=== PATIENT | female | born 2000 ===

== ENCOUNTER 2021-07-03 13:37 | Emergency (ER) | payer SELFPAY ==
[2021-07-03] MEDS ORDERED: ONDANSETRON 4 MG ODT TAB PO ONE (14:24)
[2021-07-03 15:00] LABS: Hematocrit 41.5 % (30.3-42.9); Hemoglobin 14.2 gm/dl (10.1-14.3); Mean Corpuscular HGB Conc 34 % (30-34); Mean Corpuscular Volume 91 fl (79-97); Platelet Count 368 K/mm3 (140-440); Red Blood Count 4.57 M/mm3 (3.65-5.03); Red Cell Distribution Width 13.3 % (13.2-15.2)
[2021-07-03 15:23] LABS: Alanine Aminotransferase 11 units/L (7-56); Albumin 4.8 g/dL (3.9-5); Blood Urea Nitrogen 18 mg/dL (7-17); Calcium 10.6 mg/dL (8.4-10.2); Hemolysis Index 4
[2021-07-03 15:24] LABS: BUN/Creatinine Ratio 26
[2021-07-03] MEDS ORDERED: METOCLOPRAMIDE 10 MG/2 ML INJ IV ONE (15:33)
--- NOTE | 2021-07-03 15:41 | Emergency Department Report ---
ED N/V/D HPI - General Chief complaint: Nausea/Vomiting/Diarrhea Stated complaint: VOMITING X3 Time Seen by Provider: 07/03/21 14:42 Source: patient Mode of arrival: Ambulatory Limitations: No Limitations - History of Present Illness Initial comments: 20-year-old female with no significant past medical history. Was brought to the ER today by mom with complaints of nausea and vomiting. Patient states that her symptoms started 2 days ago. Patient states that she has had multiple episodes of nausea and vomiting for the past 2 days. She states that emesis has been mainly bilious, without any coffee-ground emesis or hematemesis. Patient states that she has not been able to keep anything down. She reports associated epigastric pain and states that she has not had a bowel movement since her symptoms started. Patient states that she went to the ER in [place] yesterday, but they only gave her ODT Zofran and sent to home. They did give a prescription for Zofran, but she states that the only pharmacy that was open at the time was a 24-hour [facility] pharmacy. She states that the [facility] did not take her insurance but the pharmacy give a courtesy 3 tablets of the Zofran. Patient states that she took one last night and then 1 again today. She reports only mild improvement after taking the Zofran yesterday and today. Patient states that she feels like her symptoms are worse today. She states that she thinks it could be something that she ate though at the time she ate it did not taste or smell bad. She states that no one else at home is sick. She denies any ill contacts or recent travel. She denies any alcohol abuse, or illicit drug use. She denies any history of abdominal surgeries. Her last menstrual cycle ended about May 31. complaint: nausea, vomiting, abdominal pain -: days(s) (2) - Related Data Previous Rx's Medication Instructions Recorded Last Taken Type Famotidine [Pepcid] 20 mg PO BID #30 tablet 07/03/21 Unknown Rx Metoclopramide [Reglan] 10 mg PO Q8HR PRN #25 tab 07/03/21 Unknown Rx Allergies Allergy/AdvReac Type Severity Reaction Status Date / Time No Known Allergies Allergy Unverified 07/03/21 13:47 ED Review of Systems ROS: Stated complaint: VOMITING X3 Other details as noted in HPI Comment: All other systems reviewed and negative Constitutional: denies: chills, fever Eyes: denies: eye pain, eye discharge, vision change ENT: denies: ear pain, throat pain, dental pain, hearing loss, epistaxis, congestion Respiratory: denies: cough, shortness of breath, wheezing Cardiovascular: denies: chest pain, palpitations Gastrointestinal: abdominal pain, nausea, vomiting. denies: diarrhea, constipation, hematemesis, melena, hematochezia Genitourinary: denies: urgency, dysuria, frequency, hematuria, discharge, abnormal menses, dyspareunia Musculoskeletal: denies: back pain, joint swelling, arthralgia Psychiatric: denies: anxiety, depression, auditory hallucinations, visual hallucinations, homicidal thoughts, suicidal thoughts Hematological/Lymphatic: denies: easy bleeding, easy bruising, swollen glands ED Past Medical Hx - Past Medical History Previous Medical History?: No - Surgical History Past Surgical History?: No - Medications Home Medications: Home Medications Medication Instructions Recorded Confirmed Last Taken Type Famotidine [Pepcid] 20 mg PO BID #30 tablet 07/03/21 Unknown Rx Metoclopramide [Reglan] 10 mg PO Q8HR PRN #25 tab 07/03/21 Unknown Rx ED Physical Exam - General Limitations: No Limitations General appearance: alert, in no apparent distress - Head Head exam: Present: atraumatic, normocephalic - Eye Eye exam: Present: normal appearance, PERRL, EOMI Pupils: Present: normal accommodation - ENT ENT exam: Present: mucous membranes dry - Neck Neck exam: Present: normal inspection, full ROM - Respiratory Respiratory exam: Present: normal lung sounds bilaterally. Absent: respiratory distress, wheezes, rales, rhonchi - Cardiovascular Cardiovascular Exam: Present: regular rate, normal rhythm, normal heart sounds - GI/Abdominal GI/Abdominal exam: Present: soft, tenderness (Mod epigastric with mild guarding but no rebound or rigidity ). Absent: distended, rebound, rigid - Neurological Exam Neurological exam: Present: alert, oriented X3, CN II-XII intact, normal gait - Psychiatric Psychiatric exam: Present: normal affect, normal mood - Skin Skin exam: Present: intact ED Course Vital Signs 07/03/21 07/03/21 13:49 19:49 Temperature 98.7 F 99.2 F Pulse Rate 101 H 70 Respiratory 18 16 Rate Blood Pressure 139/97 Blood Pressure 127/58 [Left] O2 Sat by Pulse 99 100 Oximetry ED Medical Decision Making - Lab Data Result diagrams: 07/03/21 14:42 07/03/21 14:42 - Radiology Data Radiology results: report reviewed Patient: SANA HAJI MR#: [id number] : 2000 Acct:[id number] Age/Sex: 20 / F ADM Date: 07/03/21 Loc: ED Attending Dr: Ordering Physician: LILIA URBINA Date of Service: 07/03/21 Procedure(s): US abdomen limited Accession Number(s): [id number] cc: LILIA URBINA ULTRASOUND ABDOMEN, LIMITED INDICATION / CLINICAL INFORMATION: epigastric pain/nausea and vomiting. COMPARISON: None available. FINDINGS: PANCREAS: Visualized portion shows no significant abnormality. LIVER: No significant abnormality. GALLBLADDER: No significant abnormality. BILE DUCTS: No significant abnormality. Common bile duct measures 2 mm. FREE FLUID: None. ADDITIONAL FINDINGS: None. IMPRESSION: 1. No significant sonographic abnormality of the right upper quadrant. Signer Name: Kathi Lu MD Signed: 07/03/2021 7:56 PM Workstation Name: [id number] Transcribed By: DB Dictated By: KATHI LU MD Electronically Authenticated By: KATHI LU MD Signed Date/Time: 07/03/211955 DD/ 54 TD/TT: - Medical Decision Making 2023: Patient feeling better after meds and fluids. She was observed tolerating PO fluids. She has had no vomiting during stay. She is currently not in any acute distress. She is not toxic or ill appearing. Repeat Abd exam shows soft non tender abdomen. All labs reviewed -- CBC /CMP unremarkable. Lipase also unremarkable. HCG negative. UA show UTI. GB US shows nothing acute. Discussed all labs and US results with patient. Her symptoms could be viral at this time. her history, exam, diagnostic testing and current condition do not suggest acute appendicitis, bowel obstruction, acute cholecystitis, bowel perforation, pancreatitis, sepsis or other significant pathology to warrant further testing, continued ED treatment, admission or surgical evaluation at this point. Discussed suspected diagnosis and treatment plan with patient. Patient expressed onset of all instructions and agree with plan. Patient was stable at time of discharge Critical care attestation.: If time is entered above; I have spent that time in minutes in the direct care of this critically ill patient, excluding procedure time. ED Disposition Clinical Impression: Epigastric pain, Nausea and vomiting Disposition: HOME / SELF CARE / HOMELESS Is pt being admited?: No Does the pt Need Aspirin: No Condition: Stable Instructions: Gastritis, Adult, [id number], Abdominal Pain, Adult, Nausea and Vomiting, Adult, [id number], [place] Diet Additional Instructions: You can continue the zofran or take the reglan as prescribed to help with nausea and vomiting. Take the pepcid as prescribed. I recommend doing a bland diet for the next day. I recommend that you drink lots of fluids. Follow up with PCP this week or next week. Return to ED if worse. Prescriptions: Famotidine [Pepcid] 20 mg PO BID #30 tablet Metoclopramide [Reglan] 10 mg PO Q8HR PRN #25 tab PRN Reason: nausea/vomiting Referrals: PRIMARY CARE, [Primary Care Provider] - 3-5 Days [facility] [Provider Group] - 3-5 Days Forms: Work/School Release Form(ED) Time of Disposition: 20:21
[2021-07-03] MEDS ORDERED: FAMOTIDINE 20 MG TAB PO ONE (15:48)
[2021-07-03 16:01] LABS: Amphetamine Screen,Urine Negative; Benzodiazepines Screen,Urine Negative; Cocaine Screen,Urine Negative; Methadone Screen,Urine Negative; Opiate Screen,Urine Negative
[2021-07-03 16:13] LABS: Cannabinoid Screen,Urine Positive
[2021-07-03 16:16] LABS: Bilirubin,Urine NEG (Negative); Blood,Urine MOD (Negative); Color,Urine Yellow (Yellow); Mucus,Urine 2+ /HPF
[2021-07-03] MEDS ORDERED: SODIUM CHLORIDE 0.9% 1000 ML 1,000 ML ONE (16:23)
[2021-07-03] MEDS ORDERED: MORPHINE 2 MG/1 ML INJ IV ONE (18:55)
[2021-07-03 19:50] VITALS: BP 127/58
--- NOTE | 2021-07-03 20:00 | Ultrasound Report ---
ULTRASOUND ABDOMEN, LIMITED INDICATION / CLINICAL INFORMATION: epigastric pain/nausea and vomiting. COMPARISON: None available. FINDINGS: PANCREAS: Visualized portion shows no significant abnormality. LIVER: No significant abnormality. GALLBLADDER: No significant abnormality. BILE DUCTS: No significant abnormality. Common bile duct measures 2 mm. FREE FLUID: None. ADDITIONAL FINDINGS: None. IMPRESSION: 1. No significant sonographic abnormality of the right upper quadrant. Signer Name: Sher Lu MD Signed: 07/03/2021 7:56 PM Workstation Name: [id number]
== END 2021-07-03 20:35 | disposition home or self-care (01) ==
LOC: ED 13:37
DX: R11.2 Nausea with vomiting, unspecified (principal); R10.13 Epigastric pain; Z79.899 Other long term (current) drug therapy
CPT/HCPCS: 36415; 76705; 80053; 80307; 81001; 83690; 83735; 84702; 85027; 87086; 96374; 96375; 99284; J2270; J2765; J7030; Q0162

== ENCOUNTER 2021-07-25 23:47 | Emergency (ER) | payer OTHER ==
[2021-07-26 00:59] VITALS: BP 125/104
[2021-07-26] MEDS ORDERED: diphenhydrAMINE 50 MG/ML VIAL IV ONE (01:12)
[2021-07-26] MEDS ORDERED: SODIUM CHLORIDE 0.9% 1000 ML 1,000 ML IV ONE (01:12)
[2021-07-26] MEDS ORDERED: METOCLOPRAMIDE 10 MG/2 ML INJ IV ONE (01:12)
[2021-07-26] MEDS ORDERED: FAMOTIDINE 20 MG/2 ML INJ IV ONE (01:18)
--- NOTE | 2021-07-26 01:18 | Emergency Department Report ---
ED N/V/D HPI - General Chief complaint: Abdominal Pain Stated complaint: VOMITING,ABD PAIN Source: patient Mode of arrival: Ambulatory Limitations: No Limitations - History of Present Illness Initial comments: Patient is a nulliparous 20-year-old -Indian female with history of chronic cannabis abuse who presents to the ED with acute onset persistent intermittent nausea and vomiting with epigastric pain for the last 3 weeks, worse in the last 5 days. Patient states that she was initially treated in this ED 3 weeks ago for the same and discharged home on antiemetics but that these medications have not helped control her nausea and vomiting episodes. Patient however admits to continued cannabis abuse despite having the symptoms. Patient states that the last time she smoked cannabis was about 3 days ago and that her symptoms got worse after smoking this cannabis. Patient states that in the last 12 hours she has not been able to keep anything down because of intractable nausea and vomiting. Patient denies fever, chills, dizziness, syncope, headache, chest pain or shortness of breath, cough, hematemesis, hematochezia, diarrhea, dysuria, urinary frequency and urgency or low back pain and vaginal bleeding. MD complaint: nausea, vomiting, abdominal pain (Epigastric) -: Sudden, week(s) (3) Description of Vomiting: food contents, watery, bilious Associated Abdominal Pain: Yes (Mild epigastric) Location: epigastric Radiation: none Severity: severe Pain Scale: 7 Quality: cramping, aching Consistency: intermittent Improves with: none Worsens with: eating, vomiting Context: other (Chronic cannabis abuse) Associated Symptoms: denies other symptoms, loss of appetite, malaise, nausea/vomiting. denies: myalgias, chest pain, cough, diaphoresis, fever/chills, headaches, rash, dysuria, shortness of breath, syncope, weakness - Related Data Previous Rx's Medication Instructions Recorded Last Taken Type Famotidine [Pepcid] 20 mg PO BID #30 tablet 07/03/21 Unknown Rx Metoclopramide [Reglan] 10 mg PO Q8HR PRN #25 tab 07/03/21 Unknown Rx Dicyclomine [Bentyl] 20 mg PO Q6H PRN #30 tablet 07/26/21 Unknown Rx Famotidine [Pepcid] 20 mg PO BID #60 tablet 07/26/21 Unknown Rx Promethazine [Phenergan] 25 mg PO Q6HR PRN #20 tab 07/26/21 Unknown Rx Promethazine [Phenergan] 25 mg NV Q6HR PRN #30 supp.rect 07/26/21 Unknown Rx Allergies Allergy/AdvReac Type Severity Reaction Status Date / Time peanut Allergy Hives Verified 07/26/21 00:58 raspberry Allergy Hives Verified 07/26/21 00:58 ED Review of Systems ROS: Stated complaint: VOMITING,ABD PAIN Other details as noted in HPI Constitutional: denies: chills, fever Eyes: denies: eye pain, eye discharge, vision change ENT: denies: ear pain, throat pain Respiratory: denies: cough, shortness of breath, wheezing Cardiovascular: denies: chest pain, palpitations Endocrine: no symptoms reported Gastrointestinal: abdominal pain (Mild epigastric pain), nausea, vomiting. denies: diarrhea Genitourinary: denies: urgency, dysuria, discharge Musculoskeletal: denies: back pain, joint swelling, arthralgia Skin: denies: rash, lesions Neurological: denies: headache, weakness, paresthesias Psychiatric: denies: anxiety, depression Hematological/Lymphatic: denies: easy bleeding, easy bruising ED Past Medical Hx - Past Medical History Previous Medical History?: No Additional medical history: Cannabis abuse - Medications Home Medications: Home Medications Medication Instructions Recorded Confirmed Last Taken Type Famotidine [Pepcid] 20 mg PO BID #30 tablet 07/03/21 Unknown Rx Metoclopramide [Reglan] 10 mg PO Q8HR PRN #25 tab 07/03/21 Unknown Rx Dicyclomine [Bentyl] 20 mg PO Q6H PRN #30 tablet 07/26/21 Unknown Rx Famotidine [Pepcid] 20 mg PO BID #60 tablet 07/26/21 Unknown Rx Promethazine [Phenergan] 25 mg PO Q6HR PRN #20 tab 07/26/21 Unknown Rx Promethazine [Phenergan] 25 mg NV Q6HR PRN #30 supp.rect 07/26/21 Unknown Rx ED Physical Exam - General Limitations: No Limitations General appearance: alert, in no apparent distress - Head Head exam: Present: atraumatic, normocephalic, normal inspection - Eye Eye exam: Present: normal appearance, PERRL, EOMI Pupils: Present: normal accommodation - ENT ENT exam: Present: normal exam, normal orophraynx, mucous membranes moist, TM's normal bilaterally, normal external ear exam - Neck Neck exam: Present: normal inspection, full ROM - Respiratory Respiratory exam: Present: normal lung sounds bilaterally. Absent: respiratory distress, wheezes, rales, rhonchi, stridor, chest wall tenderness, accessory muscle use, decreased breath sounds, prolonged expiratory - Cardiovascular Cardiovascular Exam: Present: regular rate, normal rhythm, normal heart sounds. Absent: systolic murmur, diastolic murmur, rubs, gallop - GI/Abdominal GI/Abdominal exam: Present: soft, tenderness (Palpable mild epigastric tenderness), normal bowel sounds. Absent: guarding, rebound, hyperactive bowel sounds, hypoactive bowel sounds, organomegaly - Bi-manual exam: Present: other (Pelvic exam deferred at this time) - Extremities Exam Extremities exam: Present: normal inspection, full ROM, normal capillary refill - Back Exam Back exam: Present: normal inspection, full ROM. Absent: tenderness, CVA tenderness (R), CVA tenderness (L), muscle spasm, paraspinal tenderness, vertebral tenderness - Neurological Exam Neurological exam: Present: alert, oriented X3, CN II-XII intact, normal gait, reflexes normal - Psychiatric Psychiatric exam: Present: normal affect, normal mood - Skin Skin exam: Present: warm, dry, intact, normal color. Absent: rash ED Course Vital Signs 07/26/21 07/26/21 00:58 05:00 Temperature 98.3 F Pulse Rate 97 H 73 Respiratory 19 16 Rate Blood Pressure 125/104 [Left] O2 Sat by Pulse 100 97 Oximetry ED Medical Decision Making - Lab Data Result diagrams: 07/26/21 01:23 07/26/21 01:23 - Medical Decision Making This is a nulliparous 20-year-old -Indian female with history of chronic cannabis abuse who presents to the ED with acute onset persistent intermittent nausea and vomiting with epigastric pain for the last 3 weeks, worse in the last 5 days. Patient states that she was initially treated in this ED 3 weeks ago for the same and discharged home on antiemetics but that these medications have not helped control her nausea and vomiting episodes. Patient however admits to continued cannabis abuse despite having the symptoms. Patient states that the last time she smoked cannabis was about 3 days ago and that her symptoms got worse after smoking this cannabis. Patient states that in the last 12 hours she has not been able to keep anything down because of intractable nausea and vomiting. In the ED, patient is alert and oriented x3 and is not in any distress. Patient is hemodynamically stable. Lab test results were reviewed and showed acute leukocytosis of 11,700. The rest of the lab test results are nonactionable. Patient was treated in the ED with normal saline 1 L IV bolus x1, given antiemetics, antacids and pain medications. On reevaluation, patient tolerated oral fluids and nausea and vomiting episodes as well as pain well controlled. Patient was discharged home and given prescription for antiemetics and antacids and was advised to follow-up with her primary care physician in 3 to 5 days for reevaluation. Patient was also counseled on the importance of quitting the habit of cannabis abuse to improve on her symptoms. Patient verbalized understanding and admitted that she did not know that cannabis can cause nausea and vomiting. Patient was otherwise advised to return to the ED immediately if symptoms get worse. - Differential Diagnosis GERD; cannabis cyclic vomiting; dehydration; pancreatitis Critical care attestation.: If time is entered above; I have spent that time in minutes in the direct care of this critically ill patient, excluding procedure time. ED Disposition Clinical Impression: Intractable nausea and vomiting, Cyclic vomiting syndrome, Cannabinoid hyperemesis syndrome Disposition: 01 HOME / SELF CARE / HOMELESS Is pt being admited?: No Does the pt Need Aspirin: No Condition: Stable Instructions: Cannabis Use Disorder, Nausea and Vomiting, Adult, [id number], Marijuana Use During and , Cyclic Vomiting Syndrome, Adult, Abdominal Pain (ED) Additional Instructions: All lab test results were reviewed and are all nonactionable. Therefore maintain a clear liquid diet for 12 to 24 hours, drink plenty of fluids, take medication as advised for nausea and vomiting. Avoid marijuana use to prevent the symptoms. Follow-up with your primary care physician in 5 to 7 days for reevaluation. Return to the ED immediately if symptoms get worse. Prescriptions: Dicyclomine [Bentyl] 20 mg PO Q6H PRN #30 tablet PRN Reason: Abdominal pain Famotidine [Pepcid] 20 mg PO BID #60 tablet Promethazine [Phenergan] 25 mg PO Q6HR PRN #20 tab PRN Reason: Nausea Promethazine [Phenergan] 25 mg NV Q6HR PRN #30 supp.rect PRN Reason: Nausea And Vomiting Referrals: PRIMARY CARE,MD [Primary Care Provider] - 3-5 Days Forms: Work/School Release Form(ED) Time of Disposition: 04:16 Print Language: MALAWIAN
[2021-07-26 01:48] LABS: Hematocrit 39.5 % (30.3-42.9); Hemoglobin 13.4 gm/dl (10.1-14.3); Mean Corpuscular HGB Conc 34 % (30-34); Mean Corpuscular Volume 90 fl (79-97); Platelet Count 300 K/mm3 (140-440); Red Blood Count 4.39 M/mm3 (3.65-5.03); Red Cell Distribution Width 13.1 % (13.2-15.2)
[2021-07-26 02:03] LABS: Alanine Aminotransferase 11 units/L (7-56); Albumin 4.5 g/dL (3.9-5); Blood Urea Nitrogen 8 mg/dL (7-17); Hemolysis Index 0
[2021-07-26 02:07] LABS: BUN/Creatinine Ratio 11
[2021-07-26] MEDS ORDERED: PROCHLORPERAZINE EDISYLATE 10 MG/2 ML VIAL IV ONE (02:45)
[2021-07-26 03:00] LABS: Bilirubin,Urine NEG (Negative); Blood,Urine NEG (Negative); Color,Urine Yellow (Yellow); Mucus,Urine FEW /HPF; Urobilinogen,Urine < 2.0 mg/dL (<2.0)
[2021-07-26] MEDS ORDERED: HALOPERIDOL LACTATE 5 MG/1 ML INJ IM ONE (03:00)
[2021-07-26 03:06] LABS: Total Cells Counted 100
[2021-07-26 03:07] LABS: Platelet Estimate Consistent w Auto; RBC Morphology Normal
== END 2021-07-26 05:00 | disposition home or self-care (01) ==
LOC: ED 23:47
DX: R11.15 Cyclical vomiting syndrome unrelated to migraine (principal); R11.2 Nausea with vomiting, unspecified; F12.10 Cannabis abuse, uncomplicated; Z91.010 Allergy to peanuts; Z91.018 Allergy to other foods
CPT/HCPCS: 36415; 80053; 81001; 83690; 84703; 85007; 85025; 96361; 96372; 96374; 96375; 99283; J0780; J1200; J1630; J2765; J7030

== ENCOUNTER 2021-07-27 15:31 | Emergency (ER) | payer OTHER ==
[2021-07-27 15:53] VITALS: BP 144/95
[2021-07-27] MEDS ORDERED: diphenhydrAMINE 50 MG/ML VIAL IV ONE (15:53)
[2021-07-27] MEDS ORDERED: SODIUM CHLORIDE 0.9% 1000 ML 1,000 ML IV ONE (15:53)
[2021-07-27] MEDS ORDERED: METOCLOPRAMIDE 10 MG/2 ML INJ IV ONE (15:53)
[2021-07-27] MEDS ORDERED: DICYCLOMINE 10 MG/5 ML ORAL LIQD PO ONE (15:53)
[2021-07-27] MEDS ORDERED: FAMOTIDINE 20 MG/2 ML INJ IV ONE (15:53)
[2021-07-27 16:25] LABS: Basophils # (Auto) 0.1 K/mm3 (0.0-0.1); Basophils % (Auto) 0.6 % (0.0-1.8); Hematocrit 39.5 % (30.3-42.9); Hemoglobin 13.3 gm/dl (10.1-14.3); Lymphocytes # (Auto) 1.7 K/mm3 (1.2-5.4); Lymphocytes % (Auto) 14.7 % (13.4-35.0); Mean Corpuscular HGB Conc 34 % (30-34); Mean Corpuscular Volume 89 fl (79-97); Monocytes # (Auto) 0.8 K/mm3 (0.0-0.8); Platelet Count 318 K/mm3 (140-440); Red Blood Count 4.43 M/mm3 (3.65-5.03); Red Cell Distribution Width 13.7 % (13.2-15.2)
[2021-07-27 16:53] LABS: Alanine Aminotransferase 10 units/L (7-56); Albumin 4.7 g/dL (3.9-5); Blood Urea Nitrogen 15 mg/dL (7-17); Calcium 10.2 mg/dL (8.4-10.2); Hemolysis Index 3
--- NOTE | 2021-07-27 16:54 | Emergency Department Report ---
ED Abdominal Pain HPI - General Chief Complaint: Nausea/Vomiting/Diarrhea Stated Complaint: NAUSEA VOMITING Time Seen by Provider: 07/27/21 15:50 Source: patient Mode of arrival: Ambulatory Limitations: No Limitations - History of Present Illness Initial Comments: This is a 20-year-old female nontoxic, well nourished in appearance, no acute signs of distress presents to the ED with acute on chronic intermittent c/o of nausea and vomiting and abdominal pain several days. Patient was seen yesterday for the same complaint and stated symptoms are worse. Patient stated stated has scheduled endoscopy by group art supervisor but is scheduled for next month. Patient describes vomiting as food content and yellow gastric acid. Patient describes abdominal pain as cramping and aching with level of 8/10 primarily to the upper abdomen area. Patient denies chest pain, short of breath, fever, hemoptysis, blood in stool, chills, headache, stiff neck, n umbness or tingling. Patient denies any diarrhea or constipation. Denies any blood in stool. Patient denies any recent travels. Patient denies any drug allergies or significant past medical history. Patient stated she does smoke marijuana frequently with several times a week. MD Complaint: abdominal pain -: days(s) Location: LUQ, RUQ Radiation: none Migration to: no migration Severity: moderate Severity scale (0 -10): 8 Quality: cramping, aching Consistency: constant Improves With: nothing Worsens With: nothing Associated Symptoms: nausea, vomiting. denies: diarrhea, fever, chills, const ipation, dysuria, hematemesis, hematochezia, melena, hematuria, anorexia, syncope - Related Data Previous Rx's Medication Instructions Recorded Last Taken Type Famotidine [Pepcid] 20 mg PO BID #30 tablet 07/03/21 Unknown Rx Metoclopramide [Reglan] 10 mg PO Q8HR PRN #25 tab 07/03/21 Unknown Rx Dicyclomine [Bentyl] 20 mg PO Q6H PRN #30 tablet 07/26/21 Unknown Rx Famotidine [Pepcid] 20 mg PO BID #60 tablet 07/26/21 Unknown Rx Promethazine [Phenergan] 25 mg PO Q6HR PRN #20 tab 07/26/21 Unknown Rx Promethazine [Phenergan] 25 mg CA Q6HR PRN #30 supp.rect 07/26/21 Unknown Rx Allergies Allergy/AdvReac Type Severity Reaction Status Date / Time peanut Allergy Hives Verified 07/26/21 00:58 raspberry Allergy Hives Verified 07/26/21 00:58 ED Review of Systems ROS: Stated complaint: NAUSEA VOMITING Other details as noted in HPI Comment: All other systems reviewed and negative Constitutional: denies: chills, fever Eyes: denies: eye pain, eye discharge, vision change ENT: denies: ear pain, throat pain Respiratory: denies: cough, shortness of breath, wheezing Cardiovascular: denies: chest pain, palpitations Endocrine: no symptoms reported Gastrointestinal: abdominal pain, nausea, vomiting. denies: diarrhea, constipation, hematemesis, melena, hematochezia Genitourinary: denies: urgency, dysuria, discharge Musculoskeletal: denies: back pain, joint swelling, arthralgia Skin: denies: rash, lesions Neurological: denies: headache, weakness, paresthesias Psychiatric: denies: anxiety, depression Hematological/Lymphatic: denies: easy bleeding, easy bruising ED Past Medical Hx - Past Medical History Previous Medical History?: Yes Additional medical history: Cannabis abuse - Surgical History Past Surgical History?: No - Medications Home Medications: Home Medications Medication Instructions Recorded Confirmed Last Taken Type Famotidine [Pepcid] 20 mg PO BID #30 tablet 07/03/21 Unknown Rx Metoclopramide [Reglan] 10 mg PO Q8HR PRN #25 tab 07/03/21 Unknown Rx Dicyclomine [Bentyl] 20 mg PO Q6H PRN #30 tablet 07/26/21 Unknown Rx Famotidine [Pepcid] 20 mg PO BID #60 tablet 07/26/21 Unknown Rx Promethazine [Phenergan] 25 mg PO Q6HR PRN #20 tab 07/26/21 Unknown Rx Promethazine [Phenergan] 25 mg CA Q6HR PRN #30 supp.rect 07/26/21 Unknown Rx ED Physical Exam - General Limitations: No Limitations General appearance: alert, in no apparent distress - Head Head exam: Present: atraumatic, normocephalic - Eye Eye exam: Present: normal appearance - ENT ENT exam: Present: normal exam, normal orophraynx - Neck Neck exam: Present: normal inspection, full ROM. Absent: tenderness, meningismus, lymphadenopathy - Respiratory Respiratory exam: Present: normal lung sounds bilaterally. Absent: respiratory distress, wheezes, rales, rhonchi, stridor, chest wall tenderness, accessory muscle use, decreased breath sounds, prolonged expiratory - Cardiovascular Cardiovascular Exam: Present: regular rate, normal rhythm, tachycardia, normal heart sounds. Absent: irregular rhythm, systolic murmur, diastolic murmur, rubs, gallop - GI/Abdominal GI/Abdominal exam: Present: soft, tenderness (upper abdomen bilateral), normal bowel sounds. Absent: distended, guarding, rebound, rigid - Extremities Exam Extremities exam: Present: full ROM - Back Exam Back exam: Present: normal inspection, full ROM. Absent: tenderness, CVA tenderness (R), CVA tenderness (L), muscle spasm, paraspinal tenderness, vertebral tenderness, rash noted - Neurological Exam Neurological exam: Present: alert, oriented X3, normal gait - Psychiatric Psychiatric exam: Present: normal affect, normal mood - Skin Skin exam: Present: warm, dry, intact, normal color. Absent: rash ED Course Vital Signs 07/27/21 15:52 Temperature 98.6 F Pulse Rate 119 H Respiratory 20 Rate Blood Pressure 144/95 [Right] O2 Sat by Pulse 100 Oximetry - Reevaluation(s) Reevaluation #1: 07/27/21 16:54 Patient is speaking in full sentences with no signs of distress noted. Reevaluation #2: 07/27/21 20:35 Patient is nowhere to be found ER. Patient was called several times with did not answer the calls. It is my assumption and the RNs assumption that patient eloped without telling anybody. ED Medical Decision Making - Lab Data Result diagrams: 07/27/21 16:12 07/27/21 16:12 Lab Results 07/27/21 07/27/21 07/27/21 Range/Units 16:12 16:12 16:12 WBC 11.3 H (4.5-11.0) K/mm3 RBC 4.43 (3.65-5.03) M/mm3 Hgb 13.3 (10.1-14.3) gm/dl Hct 39.5 (30.3-42.9) % MCV 89 (79-97) fl MCH 30 (28-32) pg MCHC 34 (30-34) % RDW 13.7 (13.2-15.2) % Plt Count 318 (140-440) K/mm3 Lymph % (Auto) 14.7 (13.4-35.0) % [place] % (Auto) 7.0 (0.0-7.3) % Eos % (Auto) 0.0 (0.0-4.3) % Baso % (Auto) 0.6 (0.0-1.8) % Lymph # (Auto) 1.7 (1.2-5.4) K/mm3 [place] # (Auto) 0.8 (0.0-0.8) K/mm3 Eos # (Auto) 0.0 (0.0-0.4) K/mm3 Baso # (Auto) 0.1 (0.0-0.1) K/mm3 Seg Neutrophils % 77.7 H (40.0-70.0) % Seg Neutrophils # 8.8 H (1.8-7.7) K/mm3 Sodium 143 (137-145) mmol/L Potassium 3.9 (3.6-5.0) mmol/L Chloride 106.0 (98-107) mmol/L Carbon Dioxide 21 L (22-30) mmol/L Anion Gap 20 mmol/L BUN 15 (7-17) mg/dL Creatinine 0.7 (0.6-1.2) mg/dL Estimated GFR > 60 ml/min BUN/Creatinine Ratio 21 % Glucose 107 H (65-100) mg/dL Calcium 10.2 (8.4-10.2) mg/dL Total Bilirubin 1.00 (0.1-1.2) mg/dL AST 16 (5-40) units/L ALT 10 (7-56) units/L Alkaline Phosphatase 93 (35-129) units/L Total Protein 8.7 H (6.3-8.2) g/dL Albumin 4.7 (3.9-5) g/dL Albumin/Globulin Ratio 1.2 % Lipase 16 (13-60) units/L HCG, Qual Negative (Negative) - Medical Decision Making [id number] female that presents with abdominal pain with nausea vomiting. Patient is stable and was examined by me. CT scan and laboratory testing has been ordered but patient eloped without results and further evaluation and treatment. I was not able to reassess the patient as patient was nowhere to be found in the ER. As per RN, patient eloped without telling anybody. Critical care attestation.: If time is entered above; I have spent that time in minutes in the direct care of this critically ill patient, excluding procedure time. ED Disposition Clinical Impression: Abdominal pain Qualifiers: Abdominal location: upper abdomen, unspecified Qualified Code(s): R10.10 - Upper abdominal pain, unspecified Nausea & vomiting Qualifiers: Vomiting type: unspecified Vomiting Intractability: non-intractable Qualified Code(s): R11.2 - Nausea with vomiting, unspecified Disposition: 07 LEFT AWOL/ELOPED Is pt being admited?: No Condition: Undetermined
[2021-07-27 17:00] LABS: BUN/Creatinine Ratio 21
== END 2021-07-27 20:39 | disposition left against medical advice (07) ==
LOC: ED 15:31
DX: R10.9 Unspecified abdominal pain (principal); R11.2 Nausea with vomiting, unspecified; Z91.010 Allergy to peanuts; Z91.018 Allergy to other foods; F12.90 Cannabis use, unspecified, uncomplicated
CPT/HCPCS: 36415; 80053; 83690; 84703; 85025; 96361; 96374; 96375; 99283; J1200; J2765; J7030